=== PATIENT | male | born 1975 | race Caucasian/White ===

== ENCOUNTER 2020-07-18 22:12 | Emergency (ER) | payer BC ==
[~2020-07-18] VITALS: Ht 170.2 cm; Wt 68.0 kg
[2020-07-18 22:19] VITALS: BP 150/90
--- NOTE | 2020-07-18 22:19 | NUR ---
TO BED AMBULATORY
--- NOTE | 2020-07-18 22:34 | NUR ---
45 y/o male bib self for numbness on the inner left arm compared to the right arm. patient states no pain at this time. a/ox4; gcs 15; follows commands breathing unlabored and symmetrical. vss. denies any n/v/d. abdomen soft and round; capillary refill <3secs; face symmetrical; skin intact; patient is able to ambulate on own. patient has slight tremors on left arm. placed on cardiac cath tech; ERMD made aware of status. side rails x1. nkda social hx: smoker-- 1 pack a week; drinks occasionally meds: denies pmh: denies
--- NOTE | 2020-07-18 22:57 | NUR ---
Dr. Anthony examining patient.
--- NOTE | 2020-07-18 23:08 | NUR ---
EKG PERFORMED AT BEDSIDE. EKG READS SINUS TACHYCARDIA @ 100
[2020-07-18 23:17] LABS: BASOPHILS % (AUTO) 0.6 % (0.0-2.0); EOSINOPHILS # (AUTO) 0.1 K/uL (0-0.4); HEMOGLOBIN 14.1 g/dL (12.0-18.0); LYMPHOCYTES % (AUTO) 14.5 % (20.5-51.1); MEAN CORPUSCULAR HEMOGLOBIN 31 pg (27-31); MEAN CORPUSCULAR HGB CONC 34 g/dL (33-37); MEAN CORPUSCULAR VOLUME 93.3 fL (80-94); MONOCYTES # (AUTO) 0.6 K/uL (0.8-1.0); MONOCYTES % (AUTO) 8.7 % (1.7-9.3); NEUTROPHILS # (AUTO) 5.4 K/uL (1.8-7.7); NEUTROPHILS % (AUTO) 75.2 % (42.2-75.2); PLATELET COUNT (AUTO) 311 K/uL (140-450); RED CELL DISTRIBUTION WIDTH 17.1 % (11.6-13.7); WHITE BLOOD COUNT (AUTO) 7.2 K/uL (4.8-10.8)
--- NOTE | 2020-07-18 23:31 | NUR ---
PT RETURN FROM RADIOLOGY
[2020-07-18 23:34] LABS: PROTHROMBIN TIME 10.4 secs (10.8-13.4)
[2020-07-18 23:35] LABS: ALBUMIN 3.9 g/dL (3.4-5.0); ANION GAP 13.7 (8-16); CARBON DIOXIDE 25.5 mmol/L (21-32); CREATININE 0.8 mg/dL (0.6-1.3); POTASSIUM 4.2 mmol/L (3.5-5.1); TOTAL BILIRUBIN 1.1 mg/dL (0.0-1.0)
[2020-07-19 01:15] VITALS: BP 150/91
--- NOTE | 2020-07-19 01:15 | NUR ---
Patient discharged with v/s stable. Written and verbal after care instructions given and explained. Patient verbalized understanding. Ambulatory with steady gait. All questions addressed prior to discharge. Advised to follow up with PMD.
== END 2020-07-19 01:15 | disposition home or self-care (01) ==
LOC: MED 22:12
DX: R20.0 Anesthesia of skin (principal); R25.1 Tremor, unspecified; R00.0 Tachycardia, unspecified
CPT/HCPCS: 36415; 70450; 71045; 80053; 84484; 85025; 85610; 85730; 86886; 86900; 86901; 93005; 99285